=== PATIENT | female | born 1965 | race Caucasian/White ===

== ENCOUNTER 2017-09-16 18:02 | Emergency (ER) | payer MEDICARE, MEDICAID ==
[2017-09-16 18:44] VITALS: BP 156/92
--- NOTE | 2017-09-16 19:01 | ED ---
Throat Pain/Nasal Congestion - HPI Summary HPI Summary: 52 yr old female with the complaint of runny nose, post nasal drip, sinus pressure in the frontal and maxillary sinuses associated with nausea. She states she has decreased appetite. She has no other complaints. - History of Current Complaint Chief Complaint: UCGeneralIllness Time Seen by Provider: 09/16/17 18:46 - Allergies/Home Medications Allergies/Adverse Reactions: Allergies Allergy/AdvReac Type Severity Reaction Status Date / Time No Known Allergies Allergy Verified 09/16/17 18:31 PMH/Surg Hx/FS Hx/Imm Hx Endocrine/Hematology History: Denies: Hx Anticoagulant Therapy, Hx Blood Disorders, Hx Blood Transfusions, Hx Bone Marrow Disease, Hx Diabetes, Hx Systemic Lupus Erythematosus, Hx Sickle Cell Disease, Hx Thyroid Disease, Hx Anemia, Hx Unexplained Bleeding, Other Endocrine/Hematological Disorders Cardiovascular History: Reports: Hx Hypertension - ON MEDS Denies: Hx Aneurysm, Hx Angina, Hx Angioplasty, Hx Auto Implanted Cardiovert Defib, Hx Cardiac Arrest, Hx Cardiomegaly, Hx Congenital Heart Disease, Hx Congestive Heart Failure, Hx Coronary Artery Disease, Hx Deep Vein Thrombosis, Hx Hypercholesterolemia, Hx Hypotension, Hx Pacemaker/ICD, Hx Peripheral Vascular Disease, Hx Rheumatic Fever, Hx Syncope, Hx Valvular Heart Disease, Other Cardiovascular Problems/Disorders Respiratory History: Reports: Hx Asthma - OCCASSIONAL WEEZE Denies: Hx Bronchopulmonary Dysplasia, Hx Chronic Bronchitis, Hx Chronic Obstructive Pulmonary Disease (COPD), Hx Cystic Fibrosis, Hx Lung Cancer, Hx Pleural Effusion, Hx Pneumonia, Hx Pulmonary Edema, Hx Pulmonary Embolism, Hx Seasonal Allergies, Hx Sleep Apnea, Other Respiratory Problems/Disorders GI History: Denies: Hx Cirrhosis, Hx Crohn's Disease, Hx Diverticulosis, Hx Gall Bladder Disease, Hx Gastroesophageal Reflux Disease, Hx Gastrointestinal Bleed, Hx Hiatal Hernia, Hx Irritable Bowel, Hx Jaundice, Hx Obstructive Bowel, Hx Ileostomy, Hx Pyloric Stenosis, Hx Ulcer, Other GI Disorders History: Denies: Hx Acute Renal Failure, Hx Benign Prostatic Hyperplasia, Hx Chronic Renal Failure, Hx Dialysis, Hx Kidney Infection, Hx Kidney Stones, Hx Renal Disease, Other Problems/Disorders Musculoskeletal History: Denies: Hx Arthritis, Hx Back Problems, Hx Bursitis, Hx Congenital Bone Abnormalities, Hx Fibromyalgia, Hx Gout, Hx Orthopedic Injury, Hx Osteoporosis, Hx Scoliosis, Hx Tendonitis, Other Musculoskeletal History Sensory History: Denies: Hx Cataracts, Hx Contacts or Glasses, Hx Eye Injury, Hx Eye Prosthesis, Hx Glaucoma, Hx Macular Degeneration, Hx Vision Problem, Hx Deafness , Hx Hearing Aid, Hx Hearing Problem, Other Sensory Impairments Opthamlomology History: Denies: Hx Cataracts, Hx Contacts or Glasses, Hx Eye Injury, Hx Eye Prosthesis, Hx Glaucoma, Hx Macular Degeneration, Hx Vision Problem, Other Sensory Impairments Neurological History: Reports: Hx Migraine Denies: Hx Dementia, Hx Developmental Delay, Hx Headaches, Hx Seizures, Hx Spinal Cord Injury, Hx Transient Ischemic Attacks (TIA), Other Neuro Impairments /Disorders Psychiatric History: Denies: Hx Anxiety, Hx Attention Deficit Hyperactivity Disorder, Hx Autism, Hx Eating Disorder, Hx Oppositional [place] Disorder, Hx Depression, Hx Panic Disorder, Hx Post Traumatic Stress Disorder, Hx Inpatient Treatment, Hx Community Mental Health Tx, Hx Schizophrenia, Hx Bipolar Disorder, Hx Suicide Attempt, Other Psychiatric Issues/Disorders - Cancer History Hx Hematologic Symptoms: No Hx Chemotherapy: No Hx Radiation Therapy: No - Surgical History Surgery Procedure, Year, and Place: x 3;. L and R carpal tunnel release;. R elbow surgery;. sinus surgery; Hx Anesthesia Reactions: No Infectious Disease History: No Infectious Disease History: Denies: Hx Clostridium Difficile, Hx Hepatitis, Hx Human Immunodeficiency Virus (HIV), Hx Shingles, Hx Tuberculosis, Traveled Outside the [place] in Last 30 Days - Family History Known Family History: Positive: None - Social History Occupation: Employed Full-time Lives: With Family Alcohol Use: None Substance Use Type: Reports: None Smoking Status (MU): Never Smoked Tobacco Have You Smoked in the Last Year: No Review of Systems Negative: Fever, Chills Positive: Nasal Discharge, Other - sinus pain, Positive: Nausea All Other Systems Reviewed And Are Negative: Yes Physical Exam Triage Information Reviewed: Yes Vital Signs On Initial Exam: Initial Vitals Temp Pulse Resp BP Pulse Ox 98.4 F 86 16 156/92 97 09/16/17 18:37 09/16/17 18:37 09/16/17 18:37 09/16/17 18:37 09/16/17 18:37 Vital Signs Reviewed: Yes Appearance: Positive: Well-Appearing, No Pain Distress Skin: Positive: Warm, Skin Color Reflects Adequate Perfusion Head/Face: Positive: Normal Head/Face Inspection, Temporal Artery Tenderness Eyes: Positive: EOMI ENT: Positive: Pharynx normal, TMs normal Neck: Positive: Nontender Respiratory/Lung Sounds: Positive: Clear to Auscultation, Breath Sounds Present Cardiovascular: Positive: RRR. Negative: Murmur Abdomen Description: Positive: Nontender Musculoskeletal: Positive: Strength/ROM Intact Neurological: Positive: Sensory/Motor Intact, Alert, Oriented to Person Place, Time, CN Intact II-III Psychiatric: Positive: Normal - [place] Coma Scale Best Eye Response: 4 - Spontaneous Best Motor Response: 6 - Obeys Commands Best Verbal Response: 5 - Oriented Coma Scale Total: 15 Diagnostics - Vital Signs Vital Signs Temp Pulse Resp BP Pulse Ox 09/16/17 18:37 98.4 F 86 16 156/92 97 - Laboratory Lab Statement: Any lab studies that have been ordered have been reviewed, and results considered in the medical decision making process. EENT Course/Dx - Course Course Of Treatment: 52 yr old with sinusitis and some nausea. Plan dc home on augmentin and also zofran - Diagnoses Provider Diagnoses: Sinusitis, Hypertension Discharge - Discharge Plan Condition: Good Disposition: HOME Prescriptions: Amoxicillin/Clavulanate TAB* [Augmentin TAB 875*] 875 mg PO BID #20 tab Ondansetron ODT TAB* [Zofran 4 MG Odt TAB*] 4 mg PO Q8H PRN #14 tab.odt PRN Reason: Nausea Patient Education Materials: Sinusitis (ED), Hypertension (ED) Referrals: Jenna Burroughs PA [Primary Care Provider] - 2 Days
== END 2017-09-16 19:12 | disposition home or self-care (01) ==
LOC: UCCORT 18:02
DX: J32.9 Chronic sinusitis, unspecified (principal); R11.0 Nausea; I10 Essential (primary) hypertension; J45.909 Unspecified asthma, uncomplicated; G43.909 Migraine, unspecified, not intractable, without status migrainosus
CPT/HCPCS: 99212; G0463

== ENCOUNTER 2017-12-07 15:45 | Emergency (ER) | payer MEDICARE, MEDICAID ==
[2017-12-07 16:31] VITALS: BP 119/82
--- NOTE | 2017-12-07 17:03 | UC ---
Minor Trauma HPI - HPI Summary HPI Summary: Yesterday patient fell down stairs on her porch when she was tripped by her dog landed on the right side of her chest complains of right lateral rib pain and thoracic lumbar achiness - History of Current Complaint Chief Complaint: UCUpperExtremity Stated Complaint: S/P FALL-RT SHOULDER/RIB/BACK PAIN Time Seen by Provider: 12/07/17 16:58 Hx Obtained From: Patient Hx Last Menstrual Period: 12/09/13 ?: Yes Onset/Duration: Sudden Onset, Lasting Days - 1 Onset Of Pain: Immediate Severity Initially: Moderate Severity Currently: Moderate Pain Intensity: 5 Pain Scale Used: 0-10 Numeric Mechanism Of Injury: Fall From A Standing Position Aggravating Factor(s): Coughing, Deep Breaths Alleviating Factor(s): Nothing - Allergies/Home Medications Allergies/Adverse Reactions: Allergies Allergy/AdvReac Type Severity Reaction Status Date / Time No Known Allergies Allergy Verified 12/07/17 16:27 PMH/Surg Hx/FS Hx/Imm Hx Previously Healthy: No Endocrine History: Dyslipidemia Cardiovascular History: Hypertension GI/ History: Gastroesophageal Reflux Other History Of: Negative For: Anticoagulant Therapy - Surgical History Surgical History: Yes Surgery Procedure, Year, and Place: x 3;. L and R carpal tunnel release;. R elbow surgery;. sinus surgery; - Family History Known Family History: Positive: None - Social History Occupation: Disabled Lives: With Family Alcohol Use: None Substance Use Type: None Smoking Status (MU): Never Smoked Tobacco Have You Smoked in the Last Year: No Review of Systems Constitutional: Negative Skin: Negative Eyes: Negative ENT: Negative Respiratory: Negative Cardiovascular: Negative Gastrointestinal: Negative Genitourinary: Negative Motor: Negative Neurovascular: Negative Musculoskeletal: Arthralgia - right ribs thoracic and lumbar spine Neurological: Negative Psychological: Negative Is Patient Immunocompromised?: No All Other Systems Reviewed And Are Negative: Yes Physical Exam Triage Information Reviewed: Yes Appearance: Well-Appearing, No Pain Distress, Well-Nourished Vital Signs: Initial Vital Signs Temp 97.5 F 12/07/17 16:18 Pulse 63 12/07/17 16:18 Resp 16 12/07/17 16:18 BP 119/82 12/07/17 16:18 Pulse Ox 97 12/07/17 16:18 Vital Signs Reviewed: Yes Eye Exam: Normal Eyes: Positive: Conjunctiva Clear ENT Exam: Normal ENT: Positive: Normal ENT inspection, Hearing grossly normal, Pharynx normal. Negative: Nasal congestion, Trismus, Muffled voice, Hoarse voice, Sinus tenderness Dental Exam: Normal Neck exam: Normal Neck: Positive: Supple, Nontender, No Lymphadenopathy Respiratory Exam: Normal Respiratory: Positive: Chest non-tender, Lungs clear, Normal breath sounds, No respiratory distress, No accessory muscle use Cardiovascular Exam: Normal Cardiovascular: Positive: RRR, No Murmur, Pulses Normal, Brisk Capillary Refill Abdominal Exam: Normal Abdomen Description: Positive: Nontender, No Organomegaly, Soft. Negative: CVA Tenderness (R), CVA Tenderness (L) Bowel Sounds: Positive: Present Musculoskeletal Exam: Normal Musculoskeletal: Positive: Strength Intact, ROM Intact, No Edema Neurological Exam: Normal Psychological Exam: Normal Skin Exam: Normal Diagnostics - Laboratory Diagnostic Studies Completed/Ordered: UA had +2 leukoesterase - Radiology No standard instances Xray Interpretation: Positive (See Comments) Radiology Interpretation Completed By: Radiologist - Not displaced right lateral rib fracture #9 Minor Trauma Course/Dx - Course Course Of Treatment: Pain control,incentive spirometry, heat or ice for comfort , and follow with PCP when necessary, will culture her urine and treat if indicated - Differential Dx/Diagnosis Provider Diagnoses: Right lateral ninth rib fracture nondisplaced Discharge - Sign-Out/Discharge Documenting (check all that apply): Discharge - Discharge Plan Condition: Stable Disposition: HOME Prescriptions: HYDROcodone/ACETAMIN 5-325 MG* [Damar 5-325 TAB*] 1 tab PO Q6H PRN #16 tab MDD 4 PRN Reason: Pain Patient Education Materials: Rib Fracture (ED), Warm Compress or Soak (ED) Referrals: Jenna Burroughs PA [Primary Care Provider] - 2 Weeks Additional Instructions: Miss Clark while you're taking the hydrocodone please do not take care Ultram. please use the incentive spirometer 5 or 6 times a day 10 times each. Follow up with Rico Burroughs. - Billing Disposition and Condition Condition: STABLE Disposition: HOME
--- NOTE | 2017-12-07 18:21 | RAD ---
INDICATION: Right rib injury. TECHNIQUE: 3 views of the right ribs were obtained. FINDINGS: There is a focal area of cortical irregularity involving the right lateral ninth rib possibly representing a nondisplaced fracture. No other fractures are seen. Incidental note is made of calcification adjacent to the right humeral head suggestive of calcific tendinitis. IMPRESSION: POSSIBLE NONDISPLACED FRACTURE OF THE RIGHT LATERAL NINTH RIB.
--- NOTE | 2017-12-07 18:22 | RAD ---
INDICATION: Back injury. COMPARISON: There are no prior studies available for comparison. TECHNIQUE: AP and lateral films of the spine were obtained centered at the dorsal lumbar junction. FINDINGS: The vertebra are in normal alignment. No fracture is seen. There is mild to moderate degenerative disc disease in the lower dorsal and upper lumbar spine. IMPRESSION: NO EVIDENCE FOR FRACTURE.
== END 2017-12-07 18:51 | disposition home or self-care (01) ==
LOC: UCCORT 15:45
DX: S29.9XXA Unspecified injury of thorax, initial encounter (principal); W10.8XXA Fall (on) (from) other stairs and steps, initial encounter; Y93.9 Activity, unspecified; Y92.008 Other place in unspecified non-institutional (private) residence as the place of occurrence of the external cause; M54.6 Pain in thoracic spine; M54.5 Low back pain; E78.5 Hyperlipidemia, unspecified; I10 Essential (primary) hypertension; K21.9 Gastro-esophageal reflux disease without esophagitis
CPT/HCPCS: 72080; 81003; 87086; 99212; G0463

== ENCOUNTER 2018-05-31 21:29 | Emergency (ER) | payer MEDICARE, MEDICAID ==
--- NOTE | 2018-05-31 21:53 | UC ---
Skin Complaint HPI - HPI Summary HPI Summary: 53-year-old woman comes in with a complaint of rash. Started several days ago on her right foot. There is a blister and then an erythematous area with some drainage to it. The blister got better area of redness remains. Since then the redness spread to her left hand in the her left elbow and most recently her right forearm. Each area started with blisters and then had some drainage to theM. Patient does have a history of MRSA. Denies any exposure to poison hien. She feels well she does not have any fevers. - History of Current Complaint Chief Complaint: UCSkin Time Seen by Provider: 05/31/18 21:38 Stated Complaint: SKIN COMPLAINT Hx Last Menstrual Period: 12/09/13 - Allergy/Home Medications Allergies/Adverse Reactions: Allergies Allergy/AdvReac Type Severity Reaction Status Date / Time No Known Allergies Allergy Verified 05/31/18 21:47 Review of Systems Constitutional: Negative Skin: Other - SEE HPI Eyes: Negative ENT: Negative Respiratory: Negative Cardiovascular: Negative Gastrointestinal: Negative Motor: Negative Neurovascular: Negative Musculoskeletal: Negative Neurological: Negative Psychological: Negative Is Patient Immunocompromised?: No All Other Systems Reviewed And Are Negative: Yes PMH/Surg Hx/FS Hx/Imm Hx - Additional Past Medical History Additional PMH: CIDP Other History Of: Negative For: Anticoagulant Therapy - Surgical History Surgical History: Yes Surgery Procedure, Year, and Place: x 3;. L and R carpal tunnel release;. R elbow surgery;. sinus surgery; - Family History Known Family History: Positive: None, Diabetes - Social History Alcohol Use: None Substance Use Type: None Smoking Status (MU): Never Smoked Tobacco Have You Smoked in the Last Year: No Physical Exam Triage Information Reviewed: Yes Appearance: Well-Appearing, No Pain Distress, Well-Nourished Vital Signs Reviewed: Yes Eye Exam: Normal Eyes: Positive: Conjunctiva Clear Neck exam: Normal Neck: Positive: Supple Respiratory: Positive: Chest non-tender, No respiratory distress Cardiovascular Exam: Normal Cardiovascular: Positive: RRR Musculoskeletal Exam: Normal Musculoskeletal: Positive: Strength Intact, ROM Intact Neurological Exam: Normal Neurological: Positive: Alert, Muscle Tone Normal Psychological Exam: Normal Psychological: Positive: Normal Response To Family, Age Appropriate Behavior Skin: Positive: Other - Patient has the rash in varying stages of development. The oldest is on the medial aspect of the right foot about 2 cm diameter of erythema with a 3 mm scab of the middle. On the left index finger on the dorsum there is a similar lesion of the same size. The left elbow there is an area that's 3 cm diameter and has vesicles and also tobar crusting. The right forearm and this to areas that do not have vesicles slightly raised there is no drainage. There is no streaking from any of these areas of rash. There is small similar lesions on the left cheek. Course/Dx - Course Course Of Treatment: The differential diagnosis includes impetigo in with a history of MRSA I will treat for MRSA. A contact dermatitis such as poison hien also be a possibility no prescribed a Medrol Dosepak. The plan is for the patient follow-up with her doctor. I let her know if she feels sick if she has any fevers starts feeling ill she would need to go the emergency department has that case she would need blood work to determine if the infections got into her bloodstream. - Diagnoses Provider Diagnoses: RASH Discharge - Sign-Out/Discharge Documenting (check all that apply): Patient Departure All imaging exams completed and their final reports reviewed: No Studies - Discharge Plan Condition: Stable Disposition: HOME Prescriptions: Clindamycin Cap(NF) [Clindamycin Cap 300 mg Cap(NF)] 300 mg PO Q6H #38 cap methylPREDNISolone [Medrol Dosepak 4 MG*] 4 mg PO .SEE NICKI INSTRUCTION #1 nicki Mupirocin 1 applic TOPICAL TID #22 gm Patient Education Materials: Impetigo (ED), Contact Dermatitis (ED) Referrals: Jenna Burroughs PA [Primary Care Provider] - Additional Instructions: FOLLOW UP WITH YOUR DOCTOR. GO TO THE EMERGENCY DEPARTMENT FOR ANY WORSENING OF YOUR CONDITION; FEVER, YOU FEEL ILL OR QUESTIONS OR CONCERNS. - Billing Disposition and Condition Condition: STABLE Disposition: Home
[2018-05-31 21:56] VITALS: BP 100/55
[2018-05-31] MEDS ORDERED: Clindamycin CAP* 150 MG PO ONE ×2 (21:56→21:57)
[2018-05-31] MEDS ORDERED: Mupirocin 2% OINT* TUBE TOPICAL ONE (21:57)
[2018-05-31] MEDS ORDERED: predniSONE TAB* 20 MG PO ONE (21:57)
== END 2018-05-31 22:14 | disposition home or self-care (01) ==
LOC: UCCORT 21:29
DX: R21 Rash and other nonspecific skin eruption (principal)
CPT/HCPCS: 99213; A9270-GY; G0463; J7512

== ENCOUNTER 2019-07-28 08:26 | Emergency (ER) | payer MEDICARE, MEDICAID ==
--- OUTSIDE RECORDS SUMMARY | 2019-07-28 08:38 | XMS REPORT | Continuity of Care Document ---
:1965 External Reference #:[id number] Author Name Kaci Rivera M.D. 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 Onset: 03/29/2015 Localized, primary osteoarthritis Phylicia Benitez M.D. Onset: 03/29/2015 Social History Type Date Description Comments Sex Unknown Tobacco Use Start: Unknown Never Smoked Cigarettes Smoking Status Reviewed: 07/04/19 Never Smoked Cigarettes ETOH Use Denies alcohol use Tobacco Use Start: Unknown Patient has never smoked Recreational Drug Use Denies Drug Use Exercise Type/Frequency Does not exercise Allergies, Adverse Reactions, Alerts Description No Known Drug Allergies Medications Active Medications SIG Qnty Indications Ordering Date Provider Ivig iv q6wks Kaci Rivera, 02/19/2017 40gm premedicate each M.D. dose with benadryl 25mg by mouth x1 and tylenol 650mg by mouth x1. infuse per iv protocol Gabapentin 1 by mouth every 75tabs Kaci Rivera, 09/08/2012 600mg Tablets morning and 1 1/2 M.D. at at bedtime Magnesium 1 by mouth bid Unknown 400mg Tablets Lisinopril 2 by mouth every Unknown 12.5mg Tablets day Meloxicam 1 by mouth every Unknown 15mg Tablets day Famotidine 1 po bid Burroughs, 20mg Tablets Mainor Barroso RPA Clonidine HCL 1 po in am and 2 Burroughs, 0.1mg Tablets at hs Mainor Barroso RPA Fluticasone Propionate 2 intranasal puffs 16gm Unknown once daily 50mcg/Act Suspension Astepro 1-2 sprays sima bid 1bottle Unknown 0.15% Solution prn Prochlorperazine 1 po q6h prn 40tabs Unknown Maleate nausea 10mg Tablets Maxalt po one at onset; 18tabs Unknown 10mg Tablets may repeat in 2 hours x1. max daily dose three. Proair HFA 2 puffs po q4h prn 1units Unknown 108(90Base) mcg/ac Aerosol Cyclobenzaprine HCL one po tid prn 45tabs Unknown 10mg spasm Tablets Tramadol HCL qid prn 50tabs Unknown 50mg Tablets Metoprolol Succinate ER 1 po qd 30tabs Unknown 200mg Tablets ER 24HR Pravastatin Sodium 1 tablet once 30tabs Unknown 80mg daily at bedtime Tablets Loratadine 1 po qd 90tabs Unknown 10mg Tablets Medications Administered in Office Medication SIG Qnty Indications Ordering Provider Date Depomedrol 80MG Phylicia Benitez M.D. 03/29/2015 Injection Depomedrol 80MG Yelena Live M.D. 07/25/2014 Injection Immunizations Description No Information Available Vital Signs Date Vital Result Comment 07/04/2019 1:51pm Height 59 inches 4'11" Weight 250.00 lb Heart Rate 58 /min BP Systolic Sitting 98 mmHg BP Diastolic Sitting 72 mmHg Respiratory Rate 16 /min O2 % BldC Oximetry 98 % BMI (Body Mass Index) 50.5 kg/m2 01/30/2019 12:52pm Height 59 inches 4'11" Weight 241.12 lb Heart Rate 74 /min BP Systolic Sitting 124 mmHg BP Diastolic Sitting 80 mmHg Respiratory Rate 18 /min O2 % BldC Oximetry 92 % BMI (Body Mass Index) 48.7 kg/m2 Results Description No Information Available Procedures Description No Information Available Medical Devices Description No Information Available Encounters Type Date Location Provider Dx Diagnosis Office Visit 01/30/2019 Adonay/Kylah Rivera, G61.81 Chronic inflammatory 1:00p [facility] demyelinating [place] polyneuritis R20.2 Paresthesia of skin Z63.79 Other stressful life events affecting family and household Assessments Date Code Description Provider 07/04/2019 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 01/30/2019 R20.2 Paresthesia of skin Kaci Rivera M.D. 01/30/2019 Z63.79 Other stressful life events affecting family Kaci Rivera M.D. and household Plan of Treatment Future Appointment(s):10/03/2019 11:00 am - Kaci [facility] M.D. at [facility]07/04/2019 - Kaci Rivera M.D.G61.81 Chronic inflammatory demyelinating polyneuritisFollow up:change f/u visit to September Functional Status Description No Information Available Mental Status Description No Information Available Referrals Description No Information Available
[2019-07-28 08:42] VITALS: BP 110/60
--- NOTE | 2019-07-28 09:14 | UC ---
Throat Pain/Nasal Hunter HPI - HPI Summary HPI Summary: Patient's 48 sexual female who presents with productive cough and wheeze. Patient states initially had sinus congestion about 2 weeks ago for similar chest. Patient denies nausea vomiting. Patient states she gets wheezing and coughing paroxysms with walking. Patient without any chest pain. No nausea or vomiting. Patient with decreased energy. Patient does receive IVIG infusions and her last one was approximately 2 weeks ago. Patient is not on chronic prednisone. Patient does have a history of asthma. Patient does not smoke or ozzie. Patient's medications is entered in the EMR by triage was reviewed. - History of Current Complaint Chief Complaint: UCGeneralIllness Stated Complaint: CONGESTION COUGH Time Seen by Provider: 07/28/19 08:50 Hx Obtained From: Patient Hx Last Menstrual Period: 12/09/13 Severity: Mild Pain Intensity: 0 Pain Scale Used: 0-10 Numeric - Allergies/Home Medications Allergies/Adverse Reactions: Allergies Allergy/AdvReac Type Severity Reaction Status Date / Time No Known Allergies Allergy Verified 07/28/19 08:38 Home Medications: Home Medications Ivig 1 dose .ROUTE SEE INSTRUCTIONS 07/28/19 [History Confirmed 07/28/19] PMH/Surg Hx/FS Hx/Imm Hx Previously Healthy: Yes Other History Of: Negative For: Anticoagulant Therapy - Surgical History Surgical History: Yes Surgery Procedure, Year, and Place: x 3;. L and R carpal tunnel release;. R elbow surgery;. sinus surgery; - Family History Known Family History: Positive: None, Diabetes, Non-Contributory - Social History Occupation: Retired Lives: With Family Alcohol Use: Occasionally Substance Use Type: None Smoking Status (MU): Never Smoked Tobacco Have You Smoked in the Last Year: No - Immunization History Most Recent Tetanus Shot: UTD Review of Systems All Other Systems Reviewed And Are Negative: Yes Constitutional: Positive: Fatigue ENT: Positive: Sinus Congestion Respiratory: Positive: Cough Physical Exam - Summary Physical Exam Summary: Vital Signs Reviewed: Yes A+Ox3, no distress Eyes: Conjunctiva Clear, JASE. EOM intact and full ENT: Hearing grossly normal TM x 2 clear, turbinates inflammed and boggy, + PND , mmoist, uvula midline, no exudate, no erythema Neck: Positive: Supple Respiratory: Positive: No respiratory distress, No accessory muscle use, scattered exp wheeze, coarse cough, no rhonci Cardiovascular: RRR nl s1, s2 no m/r CBT <2 sec abd soft + BS nt/nd no guarding, no distension Musculoskeletal Exam: PARDO x 4 without difficulty Strength Intact, ROM Intact Neurological: Positive: Alert, + sensation throughout Psychological: Positive: Normal Response To examiner Skin: Positive: no rash, no ecchymosis Triage Information Reviewed: Yes Vital Signs: Initial Vital Signs Temp 97.3 F 07/28/19 08:40 Pulse 61 07/28/19 08:40 Resp 18 07/28/19 08:40 BP 110/60 07/28/19 08:40 Pulse Ox 97 07/28/19 08:40 Diagnostics - Radiology No standard instances Radiology Interpretation Completed By: Radiologist - Patient Name: AYLIN MIRANDA Medical Record#: [id number] Ordering Physician: Cadence Sam MD Acct.#: [id number] : 1964 Age: 54 Sex: F Location: [facility] Exam Date: 07/28/19918 ADM Status: REG ER Order Information: CHEST PA & LAT 2 VWS Accession Number : [id number] CPT: 01621 INDICATION: 2 weeks productive cough. Shortness of breath. COMPARISON: April 02, 2013 TECHNIQUE: Dual energy PA and lateral views of the chest were obtained. REPORT: Minimal linear atelectasis at the LEFT midlung zone peripherally. Otherwise clear lungs and pleural spaces. Negative for pneumothorax. The heart, pulmonary vasculature, and mediastinal contours are unremarkable. IMPRESSION: #. No evidence for pneumonia. <Electronically signed by Rick Padilla MD in OV> 07/28/19935 Dictated By: Rick Padilla MD Dictated Date/ Time: 07/28/19933 Transcribed Date/Time: 07/28/19933 Copy to: CC:Jenna YOO; Cadence Sam MD Imaging - [facility] [place] [facility] [address] [address] ph [phone] ph ([phone]) ph ([phone]) This report is only to be considered final once signed by the Provider(s) as displayed in the "< Electronically Signed by >" field (s). Absence of a signature indicates the report is in a draft status and still needs to be finalized. In the event this document was created by someone other than the signing Provider, the individual initiating the document will be listed in the "Entered by:" or "Dictated by:" drew. 1 of Re-Evaluation - Re-Evaluation First Eval Comment: Patient reports feeling markedly improved after the DuoNeb. Patient just x-ray does not show an infiltrate. This was reviewed. Will start patient antibiotics as she has a history of asthma and is immunocompromised. Discussed with patient secretion precautions. Encouraged patient to flu vaccine when she is feeling better. Patient comfortable with the plan. Throat Pain/Nasal Course/Dx - Course Course Of Treatment: Patient presents to urgent care for evaluation of productive cough and congestion for the last 2 weeks. Patient states initially was her sinuses but now her chest. Patient has taken some [id number] medication with little relief. No fever or chills. Patient has nausea vomiting. Patient is immunocompromised. On exam vital signs are stable. Patient does have intermittent coarse cough and scattered inspiratory and expiratory wheezing. We 'll do a chest x-ray given DuoNeb and reassessed. Patient comfortable with plan. - Differential Dx/Diagnosis Provider Diagnosis: Acute bronchitis Discharge ED - Sign-Out/Discharge Documenting (check all that apply): Patient Departure All imaging exams completed and their final reports reviewed: Yes - Discharge Plan Condition: Stable Disposition: HOME Prescriptions: Albuterol 2.5MG/3ML (0.083%)* [Ventolin 2.5 MG/3 ML NEB.JULIETH*] 2.5 mg INH Q4H # 30 neb.julieth Albuterol HFA INHALER* [Ventolin HFA Inhaler*] 2 puff INH Q4H PRN #1 mdi PRN Reason: wheeze Amoxicillin/Clavulanate TAB* [Augmentin TAB 875*] 875 mg PO BID #20 tab Fluconazole [Diflucan 150 MG (NF)] 150 mg PO ONCE PRN #1 tab PRN Reason: vaginal yeast infection Patient Education Materials: Acute Bronchitis (ED) Referrals: Jenna Burroughs PA [Primary Care Provider] - Additional Instructions: -Take antibiotics exactly as prescribed until gone -Use your albuterol puffer - 2 puffs every 4 hours for the next 2 days - then as needed -Stay well hydrated - avoid excess caffeine and all alcohol - eat regular, healthy meals - - humidify the air in the room where you sleep - boil water, run a hot steam shower, vaporizer, cups of water by heat register - okay to take over the counter decongestant and cough medication -- These infections are spread by secretions - do NOT share eating or drinking utensils - clean items you share with other people such as cell phones, computer mouse, TV remote, computer tablets,etc.. Once you have been antibiotics for 2 days, change your toothbrush and your pillowcase. -Contact your doctor to arrange a follow-up appointment this week. Call your doctor, return here or go to the emergency department with any questions or concerns - Billing Disposition and Condition Condition: STABLE Disposition: Home
[2019-07-28] MEDS ORDERED: Albuterol/Ipratropium NEB.SOL* Albuterol 2.5 MG/Ipratropium 0.5 MG 3 ML INH ONE (09:19)
== END 2019-07-28 10:10 | disposition home or self-care (01) ==
LOC: UCCORT 08:26
DX: J20.9 Acute bronchitis, unspecified (principal); J45.909 Unspecified asthma, uncomplicated; D89.9 Disorder involving the immune mechanism, unspecified; Z79.899 Other long term (current) drug therapy
CPT/HCPCS: 71046; 99212; A9270-GY; G0463